=== PATIENT | male | born 1950 | race Caucasian/White ===

== ENCOUNTER → 2017-03-03 14:54 | Emergency (ER) | payer MEDICARE ==
[~2017-03-03 14:54] MED LIST: Iohexol 300* (CONTRAST) 10 ML SDV IV ONE; Morphine INJ* 2 MG/ML 1 ML SYRINGE IV ONE; Morphine INJ* 4 MG/ML 1 ML SYRINGE IV ONE
[2017-03-03 16:08] LABS: Hematocrit 44 % (42-52); Mean Corpuscular HGB Conc 34 g/dl (31-36); Mean Corpuscular Hemoglobin 31 pg (27-31); Mean Corpuscular Volume 92 fL (80-94); Mean Platelet Volume 9 um3 (7.4-10.4); Red Blood Count 4.79 10^6/ul (4.0-5.4); Red Cell Distribution Width 13 % (10.5-15); White Blood Count 12.5 10^3/ul (3.5-10.8)
[2017-03-03 16:20] LABS: Albumin 4.3 g/dL (3.2-5.2); Calcium 9.5 mg/dL (8.6-10.3); EGFR Non-African American 95.6 (>60); Globulin 3.5 g/dL (2-4); Potassium 3.5 mmol/L (3.5-5.0); Total Bilirubin 0.8 mg/dL (0.2-1.0); Total Protein 7.8 g/dL (6.4-8.9)
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
--- NOTE | 2017-03-03 17:06 | RAD ---
HISTORY: Fall, head injury COMPARISONS: July 05, 2015 TECHNIQUE: Multiple contiguous axial CT scans were obtained of the head without intravenous contrast. FINDINGS: HEMORRHAGE/INFARCT: There is no hemorrhage or acute infarct. MASSES/SHIFT: There is no mass or shift. EXTRA-AXIAL SPACES: There are no extra-axial fluid collections. SULCI AND VENTRICLES: The sulci and ventricles are normal in size and position for the patient's stated age. CEREBRUM: There are no focal parenchymal abnormalities. BRAINSTEM: There are no focal parenchymal abnormalities. CEREBELLUM: There are no focal parenchymal abnormalities. VESSELS: The vessels are grossly normal. PARANASAL SINUSES: The paranasal sinuses are clear. ORBITS: The orbits are unremarkable. BONES AND SOFT TISSUE: No bone or soft tissue abnormalities are noted. OTHER: None IMPRESSION: NO ACUTE INTRACRANIAL PATHOLOGY.
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
--- NOTE | 2017-03-03 17:48 | PN ---
Progress Note - Progress Note Note: Pt signed out by Bharati SANTORO pending CT. CT neck: IMPRESSION: DEGENERATIVE DISC DISEASE AND OSTEOARTHRITIS. OSTEOPENIA. NO ACUTE OSSEOUS INJURY CT brain: IMPRESSION: NO ACUTE INTRACRANIAL PATHOLOGY. CT chest/ab/pelvis: IMPRESSION: 1. NO ACUTE CT PATHOLOGY OF THE VISUALIZED CHEST, ABDOMEN, OR PELVIS. 2. MILD BULLOUS DISEASE. 3. MILD DEGENERATIVE CHANGES. 4. DIVERTICULOSIS. 5. FATTY INFILTRATION OF THE LIVER. 6. ATHEROSCLEROSIS Got results from CT and everything normal. no fracture seen on xray. Discussed results with patient. Told to breath deeply to prevent pneumonia and follow up with primary. patient understands and agrees with plan Diagnosis: rib contusion Disposition: home Condition: good
[2017-03-03 18:05] VITALS: BP 126/74
== END | disposition home or self-care (01) ==
LOC: ED 14:54
DX: S20.219A Contusion of unspecified front wall of thorax, initial encounter (principal); S09.90XA Unspecified injury of head, initial encounter; W11.XXXA Fall on and from ladder, initial encounter; Y92.9 Unspecified place or not applicable; R07.9 Chest pain, unspecified; K57.90 Diverticulosis of intestine, part unspecified, without perforation or abscess without bleeding; K76.0 Fatty (change of) liver, not elsewhere classified
CPT/HCPCS: 36415; 70450; 71260; 72125; 74177; 80053; 82150; 82550; 83605; 83690; 83874; 85025; 96374; 96376; 99283; J2270; Q9967

== ENCOUNTER 2017-09-14 07:20 | Day surgery (SDC) | payer MEDICARE ==
[~2017-09-14 07:20] MED LIST changes: +Acetaminophen TAB* 325 MG PO PRN; +Buffered Lidocaine 0.9% SYRIN* 5 ML/SYR SYRINGE INTRADERM ONE; -Iohexol 300* (CONTRAST) 10 ML SDV IV ONE; -Morphine INJ* 2 MG/ML 1 ML SYRINGE IV ONE; -Morphine INJ* 4 MG/ML 1 ML SYRINGE IV ONE
[2017-09-14] MEDS ORDERED: Midazolam* 1 MG/ML 2 ML VIAL (2 MG) ONE (08:00)
[2017-09-14] MEDS ORDERED: fentaNYL* 50 MCG/ML 2 ML VIAL (100 MCG VIAL) ONE (08:28)
[2017-09-14 09:07] VITALS: BP 130/78
--- NOTE | 2017-09-14 11:29 | OP ---
DATE OF OPERATION: 09/14/17 - [facility] DATE OF : 54 SURGEON: Vladimir Bentley MD ANESTHESIOLOGIST: Shane Diallo MD ANESTHESIA: Monitored anesthesia care. PRE-OP DIAGNOSIS: Cataract, left eye. POST-OP DIAGNOSIS: Cataract, left eye. OPERATIVE PROCEDURE: Cataract surgery, left eye. IMPLANTS: SN60WF 17.0 diopter lens, left eye. COMPLICATIONS: None. DESCRIPTION OF PROCEDURE: The patient was given phenylephrine 2.5% and cyclopentolate 1% eye drops to the operative eye in the preoperative area. The patient was brought to the operating room where a time-out was taken to identify the correct patient, site, and side of surgery. The patient's left eye was prepped and draped in the usual sterile fashion with 5% Betadine. A second time-out was taken to verify the correct patient, site, and side of surgery and correct lens selection. A lid speculum was placed to the left eye. A 1-mm paracentesis blade was used to make a clear corneal incision in the inferotemporal position. Preservative-free 1% lidocaine was injected into the anterior chamber. DisCoVisc was injected into the anterior chamber. A 2.75-mm keratome blade was used to make a triplanar incision at the superotemporal position. A cystotome initiated a capsulorrhexis, which was completed with Utrata forceps in a continuous and curvilinear manner. Hydrodissection of the lens was performed with BSS on a cannula. The lens could be spun in the capsular bag. The phacoemulsification handpiece was used with a divide-and- conquer technique to remove the nucleus in its entirety with 17.80 CDE. The I/A handpiece then removed the residual cortical lens material. DisCoVisc was injected to inflate the capsular bag. The planned SN60WF 17.0 diopter lens was injected into the capsular bag. The residual DisCoVisc was removed from the eye with the I/A handpiece. The corneal incisions were hydrated and no leaks occurred at physiologic pressure around 20 mmHg per palpation. The lid speculum was removed and drapes removed. Maxitrol ointment was placed to the surface of the operative eye. An adhesive patch and shield was placed on the operative eye. The patient was taken to the postoperative area in stable condition. [id number]/[facility] #: [id number] MTDD
[2017-09-14] MEDS ORDERED: Povidone Iodine 5% OPTH* 30 ML BTL ONE (11:50)
[2017-09-14] MEDS ORDERED: Lidocaine 1% MPF* 2 ML VIAL ONE (11:50)
[2017-09-14] MEDS ORDERED: Neomycin/Polymy/Dex OPHTH.OIN* 3.5 GM ONE (11:50)
[2017-09-14] MEDS ORDERED: Tropicamide 1% OPTH.SOL* BTL ONE (11:50)
[2017-09-14] MEDS ORDERED: Buffered Lidocaine 0.9% SYRIN* 5 ML/SYR SYRINGE ONE (11:50)
[2017-09-14] MEDS ORDERED: Flurbiprofen 0.03% OPTH.SOL* 2.5 ML BTL ONE (11:50)
[2017-09-14] MEDS ORDERED: Phenylephrine 2.5% OPTH.SOL* 2 ML BTL ONE (11:50)
[2017-09-14] MEDS ORDERED: acetaZOLAMIDE TAB* 250 MG ONE (11:50)
[2017-09-14] MEDS ORDERED: Cyclopentolate 1% OPTH.SOL* 2 ML BTL ONE (11:50)
[2017-09-14] MEDS ORDERED: Tetracaine 0.5% OPTH.SOL 4 ML* 1 DROP BTL ONE (11:50)
== END 2017-09-14 09:04 | disposition home or self-care (01) ==
LOC: OREAST 07:20
PROVIDERS: ATTEND Student in an Organized Health Care Education/Training Program
DX: H25.12 Age-related nuclear cataract, left eye (principal); Z96.1 Presence of intraocular lens; Z88.8 Allergy status to other drugs, medicaments and biological substances; F17.210 Nicotine dependence, cigarettes, uncomplicated
CPT/HCPCS: 81025; A9270-GY; J2250; J3010; V2632